=== PATIENT | male | born 1950 | race Asian ===

== ENCOUNTER 2017-10-12 12:02 | Day surgery (SDC) | payer BC ==
[2017-10-12] MEDS ORDERED: FENTAnyl 50 MCG/ML VIAL (14:12)
[2017-10-12] MEDS ORDERED: MIDAZOLAM 1 MG/ML 2 ML INJ ×2 (14:12)
== END 2017-10-12 14:52 | disposition home or self-care (01) ==
LOC: GIL 12:02
DX: Z12.11 Encounter for screening for malignant neoplasm of colon (principal); D12.6 Benign neoplasm of colon, unspecified; K64.8 Other hemorrhoids; E11.9 Type 2 diabetes mellitus without complications; I10 Essential (primary) hypertension
CPT/HCPCS: 45380; 82962; 88305

== ENCOUNTER 2017-11-16 08:23 | Day surgery (SDC) | payer BC ==
[~2017-11-16 08:23] MED LIST: EPHEDrine SULFATE 50 MG/5 ML SYG; LACTATED RINGER'S 1,000 ML IV*
[2017-11-16] MEDS ORDERED: CEFAZOLIN 1 GM INJ (10:07)
[2017-11-16] MEDS ORDERED: FENTAnyl 50 MCG/ML VIAL (10:07)
[2017-11-16] MEDS ORDERED: ROCURONIUM 50 MG INJ (10:07)
[2017-11-16] MEDS ORDERED: MIDAZOLAM 1 MG/ML 2 ML INJ (10:07)
[2017-11-16] MEDS ORDERED: PROPOFOL 20 ML (10:07)
[2017-11-16] MEDS ORDERED: ONDANSETRON 4 MG INJ (10:44)
[2017-11-16] MEDS ORDERED: DEXAMETHASONE 4 MG/ML 1 ML INJ (10:44)
[2017-11-16] MEDS ORDERED: METOCLOPRAMIDE 10 MG INJ (10:44)
[2017-11-16] MEDS: OXYMETAZOLINE 0.05% 15 ML NAS SPRAY NASAL (10:47)
[2017-11-16] MEDS: LIDOCAINE 1%/EPI 30 ML INJ (10:47)
[2017-11-16] MEDS ORDERED: PHENYLephrine (100 MCG/ML) 5ML SYG (10:59)
[2017-11-16] MEDS ORDERED: KETOROLAC 30 MG INJ (10:59)
[2017-11-16] MEDS ORDERED: SUGAMMADEX SODIUM 200 MG/2 ML VIAL IV (11:03)
[2017-11-16] MEDS ORDERED: DIPHENHYDRAMINE 50 MG INJ IV (11:30)
[2017-11-16] MEDS ORDERED: LABETALOL HCL 20MG INJ IV (11:30)
[2017-11-16] MEDS ORDERED: ONDANSETRON 4 MG INJ IV (11:30)
[2017-11-16] MEDS ORDERED: FENTAnyl 50 MCG/ML VIAL IV ×3 (11:30)
[2017-11-16] MEDS ORDERED: hydrALAzine 20 MG INJ IV (11:30)
[2017-11-16] MEDS ORDERED: METOCLOPRAMIDE 10 MG INJ IV (11:30)
[2017-11-16] MEDS ORDERED: MEPERIDINE 25 MG INJ IV (11:30)
[2017-11-16] MEDS ORDERED: OXYCODONE/ACETAMINOPHEN (5/325) TAB PO ×2 (11:30)
[2017-11-16] MEDS ORDERED: HYDROmorphONE 1 MG/5 ML IV SYRINGE IV ×3 (11:30)
[2017-11-16] MEDS ORDERED: EPHEDrine SULFATE 50 MG/5 ML SYG IV (11:30)
== END 2017-11-16 13:01 | disposition home or self-care (01) ==
LOC: SDS 08:23
DX: J34.2 Deviated nasal septum (principal); J34.3 Hypertrophy of nasal turbinates; H72.02 Central perforation of tympanic membrane, left ear; E78.5 Hyperlipidemia, unspecified; I10 Essential (primary) hypertension; E11.9 Type 2 diabetes mellitus without complications
CPT/HCPCS: 30520; 71045; 82962; 88300